=== PATIENT | female | born 1985 | race Asian ===

== ENCOUNTER 2017-05-15 14:20 | Emergency (ER) | payer OTHER ==
[2017-05-15 15:43] VITALS: BP 129/80
--- NOTE | 2017-05-15 15:52 | UC ---
Throat Pain/Nasal Jose HPI - HPI Summary HPI Summary: compalint of sore throat that started 2 daysa go sore throat has worsened today intermittent headaches denies fever but has had some chills at night denies nasal congestion and cough poor appetite d/t pain not taking any medication for pain - History of Current Complaint Chief Complaint: UCRespiratory Stated Complaint: SORE THROAT Time Seen by Provider: 05/15/17 15:45 Hx Obtained From: Patient Hx Last Menstrual Period: 04/15/17 - Allergies/Home Medications Allergies/Adverse Reactions: Allergies Allergy/AdvReac Type Severity Reaction Status Date / Time No Known Allergies Allergy Verified 05/15/17 15:35 Home Medications: Home Medications Amphetamine-Dextroamphetamine [Adderall 30 mg-] 1 tab PO DAILY 05/15/17 [ History Confirmed 05/15/17] Norgestimate-Ethinyl Estradiol [Trinessa 0.18/0.215/0.25 mg-35 Mcg] 1 tab PO DAILY 05/15/17 [History Confirmed 05/15/17] PMH/Surg Hx/FS Hx/Imm Hx Previously Healthy: Yes - Surgical History Surgical History: Yes Surgery Procedure, Year, and Place: BACK SURGERY - Family History Known Family History: Negative: Cardiac Disease, Hypertension, Diabetes - Social History Occupation: Employed Full-time Lives: With Family Alcohol Use: Rare Substance Use Type: None Smoking Status (MU): Never Smoked Tobacco Review of Systems Constitutional: Chills Skin: Negative Eyes: Negative ENT: Sore Throat Respiratory: Negative Cardiovascular: Negative Gastrointestinal: Negative Genitourinary: Negative Motor: Negative Neurovascular: Negative Musculoskeletal: Negative Neurological: Headache Psychological: Negative All Other Systems Reviewed And Are Negative: Yes Physical Exam Triage Information Reviewed: Yes Appearance: No Pain Distress, Well-Nourished Vital Signs: Initial Vital Signs Temp 98.1 F 05/15/17 15:36 Pulse 89 05/15/17 15:36 Resp 16 05/15/17 15:36 BP 129/80 05/15/17 15:36 Pulse Ox 99 05/15/17 15:36 Vital Signs Reviewed: Yes Eyes: Positive: Conjunctiva Clear ENT: Positive: Pharyngeal erythema, TMs normal, Tonsillar swelling, Tonsillar exudate. Negative: Nasal congestion, Nasal drainage Dental: Positive: Cervical Lymphadenopathy Neck: Positive: Supple Respiratory: Positive: Lungs clear, Normal breath sounds, No respiratory distress, No accessory muscle use Cardiovascular: Positive: RRR, No Murmur, Pulses Normal Abdomen Description: Positive: Nontender, Soft Bowel Sounds: Positive: Present Musculoskeletal Exam: Normal Neurological: Positive: Alert Psychological Exam: Normal Skin Exam: Normal Throat Pain/Nasal Course/Dx - Differential Dx/Diagnosis Differential Diagnosis/HQI/PQRI: Pharyngitis, Sinusitis, Tonsillitis Provider Diagnoses: tonsilitis Discharge - Discharge Plan Condition: Stable Disposition: HOME Patient Education Materials: Tonsillitis (ED) Referrals: [facility] [place] [facility] [Outside] Additional Instructions: TONSILLITIS What is Tonsillitis? Tonsillitis is an infectious condition with symptoms characterized by inflamed tonsils, fever, painful swallowing, sore throat, and a slight voice change. Other symptoms include a white or yellow coating on the tonsils, swollen lymph nodes, headache, and bad breath. Nausea, vomiting, and abdominal pain may occur in younger children. Throat infection (pharyngitis) often occurs along with tonsillitis. Tonsillitis may be caused by either viruses or bacteria, and often the symptoms are the same no matter which germ is causing the infection. Bacterial tonsillitis can be treated with antibiotics, but viral tonsillitis cannot. Sometimes healthcare providers differentiate between the two by taking a throat culture (a painless swab of the back of the throat) or a quick step test and send it to the lab. Eighty-five percent of throat cultures are negative for strep; the majority of infections are caused by a virus. Symptoms Might Include: ? Mild to severe sore throat and difficulty swallowing ? Fever ? Swollen, tender neck glands ? Headache ? Muscle and joint pain ? Loss of appetite ? Ear ache ? Breathing through the mouth ? Nausea or vomiting How Long Will My Symptoms Last? When tonsillitis is caused by Group A streptococci, fever usually stops within 48 hours, and the sore throat disappears soon afterward. With antibiotic treatment, the illness is usually cured within 1 week, but it may take several weeks for the tonsils and swollen glands to return to normal size. When tonsillitis is caused by viruses, the length of illness depends on which virus is involved. Most people are almost completely recovered within 1 week. Contagiousness: All forms of tonsillitis are contagious. Tonsillitis usually spreads from person to person by contact with the throat or nasal fluids of someone who is already infected. Drinking glasses and eating utensils should be kept separate from those of other family members and should be washed with hot soapy water, or washed in the [employer]. All family members should was their hand frequently. If you have a cough, be sure to cover your mouth when coughing. Place used tissues directly in the garbage can. Please review your discharge instructions. If your symptoms do not improve please call your primary care provider or return to urgent care.
== END 2017-05-15 16:11 | disposition home or self-care (01) ==
LOC: UCCORT 14:20
DX: J03.90 Acute tonsillitis, unspecified (principal)
CPT/HCPCS: 87651; 99201; G0463